=== PATIENT | male | born 1955 | race Caucasian/White ===

== ENCOUNTER 2023-04-06 19:54 | Inpatient (IN) | payer OTHER ==
[2023-04-06 22:38] VITALS: BMI 27.3
[2023-04-06] MEDS ORDERED: Senokot S 8.6-50 MG TAB PO PRN (22:40)
[2023-04-06] MEDS ORDERED: Dextrose 50% Abboject 50 ML SYRINGE SLOW IVP PRN (22:40)
[2023-04-06] MEDS ORDERED: HYDROcodone/Acetaminophen 5/325 mg Tablet PO PRN (22:40)
[2023-04-06] MEDS ORDERED: Ondansetron PF 4 MG/2 ML Vial IVP PRN (22:40)
[2023-04-06] MEDS ORDERED: Dextrose 5% in Water 1,000 ML IV PRN (22:40)
[2023-04-06] MEDS ORDERED: Zolpidem Tartrate 5 MG TAB PO PRN (22:40)
[2023-04-06] MEDS ORDERED: Calcium Carbonate 500 MG ChewTAB PO PRN (22:40)
[2023-04-06] MEDS ORDERED: Guaifenesin DM 100-10/5 ML UDCUP PO PRN (22:40)
[2023-04-06] MEDS ORDERED: Glucagon 1 MG/ML KIT IM PRN (22:40)
[2023-04-06] MEDS ORDERED: Acetaminophen 325 MG TAB PO PRN (22:40)
[2023-04-06 23:31] LABS: Troponin I 0.046 ng/mL (< 0.028)
[2023-04-06 23:55] LABS: Iron 19 ug/dL (65-175); Iron Binding Capacity, Total 344 mcg/dL (261-462)
[2023-04-07] MEDS ORDERED: Furosemide 40 MG/4 ML VIAL SLOW IVP SCH ×2 (00:30→02:30)
[2023-04-07 08:31] LABS: Hematocrit 28.9 % (38.8-50.0); Hemoglobin 8.5 g/dL (13.5-17.5); Mean Corpuscular HGB CONC 29.4 g/dL (32.0-36.0); Mean Corpuscular Hemoglobin 23.2 pg (27.0-33.0); Mean Platelet Volume 10.1 fl (7.4-10.4); Platelet Count 292 10x3/uL (150-450); RBC Distribution Width 16.2 % (11.5-14.5); Red Blood Cell (RBC) Count 3.66 10x6/uL (4.32-5.72); White Blood Cell (WBC) Count 10.3 10x3/uL (3.5-10.5)
[2023-04-07 08:32] LABS: Anion Gap 11 mmol/L (10-20); BUN (Urea Nitrogen) 25 mg/dL (8.4-25.7); Calc. Creatinine Clearance 50 mL/min (70-130); Calcium 8.5 mg/dL (7.8-10.44); Carbon Dioxide 24 mmol/L (23-31); Chloride 106 mmol/L (98-107); Estimated GFR 44; Glucose 102 mg/dL (80-115); Magnesium 1.5 mg/dL (1.6-2.6); Potassium 4.2 mmol/L (3.5-5.1); Sodium 137 mmol/L (136-145)
[2023-04-07 08:36] LABS: Troponin I 0.056 ng/mL (< 0.028)
[2023-04-07] MEDS ORDERED: Furosemide 20 MG/2 ML VIAL SLOW IVP SCH (09:00)
[2023-04-07] MEDS ORDERED: Metoprolol Tartrate 25 MG TAB PO SCH (09:00)
[2023-04-07] MEDS ORDERED: Magnesium 2 GM/50 ML(in water) 2 GM in Premix Bag 1 BAG IVPB SCH ×2 (09:00→10:00)
[2023-04-07] MEDS ORDERED: Famotidine 20 MG TAB PO SCH (09:00)
[2023-04-07] MEDS: Lisinopril 10 MG TAB PO SCH (09:20)
[2023-04-07] MEDS: metFORMIN 500 MG TAB PO SCH ×2 (09:21→17:40)
[2023-04-07] MEDS: Folic Acid/Vit B Comp W-C PO SCH (09:22)
[2023-04-07] MEDS ORDERED: Carvedilol 6.25 MG TAB PO SCH (10:00)
[2023-04-07] MEDS ORDERED: Iron, Sodium Ferric Gluconate 250 MG in Sodium Chloride 0.9% 250 ML 250 ML IVPB SCH (16:00)
[2023-04-07] MEDS: Carvedilol 6.25 MG TAB PO SCH (17:40)
[2023-04-07] MEDS: Cyanocobalamin (Vitamin B-12) 1,000 MCG TAB PO SCH (20:30)
[2023-04-07] MEDS: Rosuvastatin 10 MG TAB PO SCH (20:30)
[2023-04-07] MEDS: Folic Acid 1 MG TAB PO SCH (20:31)
[2023-04-07] MEDS: Multivit, Therapeutic 1 TAB PO SCH (20:31)
[2023-04-08 04:23] LABS: Anion Gap 13 mmol/L (10-20); BUN (Urea Nitrogen) 24 mg/dL (8.4-25.7); Calc. Creatinine Clearance 50 mL/min (70-130); Calcium 8.3 mg/dL (7.8-10.44); Carbon Dioxide 23 mmol/L (23-31); Chloride 106 mmol/L (98-107); Estimated GFR 44; Glucose 90 mg/dL (80-115); Magnesium 1.9 mg/dL (1.6-2.6); Sodium 138 mmol/L (136-145); Transferrin, Serum 230 mg/dL (163-344)
[2023-04-08 04:36] LABS: #Basophils 0.1 10x3/uL (0.0-0.2); #Eosinphils 0.4 10x3/uL (0.0-0.5); #Monocytes 1.1 10x3/uL (0.0-1.1); #Neutrophils 6.9 10x3/uL (1.5-8.4); %Basophils 0.6 % (0.0-2.0); %Eosinophils 4.3 % (0.0-6.0); %Lymphocytes 11.7 % (18.0-47.0); %Monocytes 11.4 % (0.0-10.0); %Neutrophils 71.8 % (40.0-75.0); Hematocrit 26.9 % (38.8-50.0); Mean Corpuscular HGB CONC 29.7 g/dL (32.0-36.0); Mean Corpuscular Volume 77.3 fl (81.2-95.1); Mean Platelet Volume 10.2 fl (7.4-10.4); Platelet Count 300 10x3/uL (150-450); RBC Distribution Width 16.3 % (11.5-14.5); Red Blood Cell (RBC) Count 3.48 10x6/uL (4.32-5.72); White Blood Cell (WBC) Count 9.6 10x3/uL (3.5-10.5)
[2023-04-08] MEDS: metFORMIN 500 MG TAB PO SCH (10:09)
[2023-04-08] MEDS ORDERED: PROPOFOL 40 ML ONE (10:18)
[2023-04-08] MEDS ORDERED: PROPOFOL 20 ML ONE (10:53)
[2023-04-08] MEDS: Famotidine 20 MG TAB PO SCH (14:21)
[2023-04-08] MEDS: Folic Acid/Vit B Comp W-C PO SCH (14:21)
[2023-04-08] MEDS: Magnesium Oxide 400 MG TAB PO SCH (14:22)
[2023-04-08] MEDS: Lisinopril 10 MG TAB PO SCH (14:22)
[2023-04-08] MEDS: Furosemide 40 MG TAB PO SCH ×3 (14:22→14:23)
[2023-04-08] MEDS: Carvedilol 6.25 MG TAB PO SCH (14:28)
[2023-04-08] MEDS ORDERED: Carvedilol 6.25 MG TAB PO SCH (17:00)
[2023-04-08] MEDS ORDERED: GoLYTELY 4,000 ml Bottle PO SCH (20:30)
[2023-04-08] MEDS: Rosuvastatin 10 MG TAB PO SCH (22:23)
[2023-04-08] MEDS: Multivit, Therapeutic 1 TAB PO SCH (22:23)
[2023-04-08] MEDS: Cyanocobalamin (Vitamin B-12) 1,000 MCG TAB PO SCH (22:24)
[2023-04-08] MEDS: Folic Acid 1 MG TAB PO SCH (22:24)
[2023-04-09 04:28] LABS: Hematocrit 27.2 % (38.8-50.0); Hemoglobin 8.1 g/dL (13.5-17.5); Mean Corpuscular HGB CONC 29.8 g/dL (32.0-36.0); Mean Corpuscular Hemoglobin 22.9 pg (27.0-33.0); Mean Corpuscular Volume 77.1 fl (81.2-95.1); Mean Platelet Volume 10.3 fl (7.4-10.4); Platelet Count 298 10x3/uL (150-450); RBC Distribution Width 16.6 % (11.5-14.5); Red Blood Cell (RBC) Count 3.53 10x6/uL (4.32-5.72); White Blood Cell (WBC) Count 8.7 10x3/uL (3.5-10.5)
[2023-04-09 04:40] LABS: Anion Gap 15 mmol/L (10-20); BUN (Urea Nitrogen) 18 mg/dL (8.4-25.7); Calc. Creatinine Clearance 54 mL/min (70-130); Calcium 8.2 mg/dL (7.8-10.44); Carbon Dioxide 24 mmol/L (23-31); Chloride 103 mmol/L (98-107); Estimated GFR 48; Glucose 138 mg/dL (80-115); Potassium 3.7 mmol/L (3.5-5.1); Sodium 138 mmol/L (136-145)
[2023-04-09] MEDS: Furosemide 40 MG TAB PO SCH ×2 (08:47→14:58)
[2023-04-09] MEDS: Folic Acid/Vit B Comp W-C PO SCH (08:47)
[2023-04-09] MEDS: Lisinopril 10 MG TAB PO SCH (08:47)
[2023-04-09] MEDS: Magnesium Oxide 400 MG TAB PO SCH (08:47)
[2023-04-09] MEDS: Carvedilol 25 MG TAB PO SCH ×2 (08:47→17:22)
[2023-04-09] MEDS: Famotidine 20 MG TAB PO SCH (08:47)
[2023-04-09] MEDS ORDERED: PROPOFOL 40 ML ONE (12:40)
[2023-04-09] MEDS ORDERED: PROPOFOL 20 ML ONE (12:54)
[2023-04-09 18:08] VITALS: BP 144/63; TEMP 98
== END 2023-04-09 18:20 | disposition home or self-care (01) | DRG 291 ==
LOC: CSHTELE 22:10
PROVIDERS: ADMIT Student in an Organized Health Care Education/Training Program; ATTEND Internal Medicine
PROC: 30233N1 Transfusion of Nonautologous Red Blood Cells into Peripheral Vein, Percutaneous Approach (ICD-10-PCS; 2023-04-07)
PROC: 0DB98ZX Excision of Duodenum, Via Natural or Artificial Opening Endoscopic, Diagnostic (ICD-10-PCS; principal; 2023-04-08)
PROC: 0DB78ZX Excision of Stomach, Pylorus, Via Natural or Artificial Opening Endoscopic, Diagnostic (ICD-10-PCS; 2023-04-08)
PROC: 0DBN8ZZ Excision of Sigmoid Colon, Via Natural or Artificial Opening Endoscopic (ICD-10-PCS; 2023-04-09)
DX: I13.0 Hypertensive heart and chronic kidney disease with heart failure and stage 1 through stage 4 chronic kidney disease, or unspecified chronic kidney disease (principal); I50.21 Acute systolic (congestive) heart failure; K29.41 Chronic atrophic gastritis with bleeding; I42.2 Other hypertrophic cardiomyopathy; E78.5 Hyperlipidemia, unspecified; D64.9 Anemia, unspecified; N18.30 Chronic kidney disease, stage 3 unspecified; D63.1 Anemia in chronic kidney disease; E83.42 Hypomagnesemia; E11.22 Type 2 diabetes mellitus with diabetic chronic kidney disease; D50.9 Iron deficiency anemia, unspecified; I25.10 Atherosclerotic heart disease of native coronary artery without angina pectoris; K64.4 Residual hemorrhoidal skin tags; K64.8 Other hemorrhoids; K57.30 Diverticulosis of large intestine without perforation or abscess without bleeding; D12.5 Benign neoplasm of sigmoid colon; Z95.2 Presence of prosthetic heart valve; Z79.899 Other long term (current) drug therapy
CPT/HCPCS: 36415; 36416; 36430; 80048; 82728; 83540; 83550; 83735; 83880; 84443; 84466; 84484; 85025; 85027; 85046; 86850; 86900; 86901; 88305; 93306; J1940; J2704; J2916; J3475; J7050; P9016